=== PATIENT | male | born 1995 | race Caucasian/White ===

== ENCOUNTER 2024-09-16 08:59 | Inpatient (IN) | payer BC, MEDICAID ==
--- NOTE | 2024-09-16 09:15 | ED ---
Psych HPI - General Chief Complaint: Psychiatric Symptoms Stated Complaint: ETOH, mental health Time Seen by Provider: 09/16/24 09:04 Source: patient, RN notes reviewed Mode of arrival: ambulatory Limitations: no limitations - History of Present Illness Initial Comments: 29-year-old male presents emergency department chief complaint of depression and suicide lesion, alcohol abuse. Patient states that he drinks several beers a day. Patient states that he gets very shaky in the morning states he also has nausea. Patient states he wants to stop drinking but also states he has 0 depressed and having thoughts of suicide. Patient denies any self-harm he tries [place] symptoms with marijuana use, alcohol abuse. Patient states that he takes naproxen daily but denies any other medications - Related Data Home Medications Medication Instructions Recorded Confirmed Naproxen Sodium [Aleve] 660 mg PO BID PRN 09/16/24 09/16/24 Allergies Allergy/AdvReac Type Severity Reaction Status Date / Time amoxicillin Allergy Rash/Hives Verified 09/16/24 09:05 Penicillins Allergy Anaphylaxis, Verified 09/16/24 09:28 swelling spinach Allergy Rash/Hives Verified 09/16/24 09:28 Review of Systems ROS Statement: Those systems with pertinent positive or pertinent negative responses have been documented in the HPI. ROS Other: All systems not noted in ROS Statement are negative. Past Medical History Past Medical History: Asthma History of Any Multi-Drug Resistant Organisms: None Reported Past Surgical History: No Surgical Hx Reported Past Psychological History: No Psychological Hx Reported Smoking Status: Current every day smoker Past Alcohol Use History: Abuse, Daily Past Drug Use History: Marijuana General Exam Limitations: no limitations General appearance: alert, in no apparent distress Head exam: Present: atraumatic, normocephalic, normal inspection Eye exam: Present: normal appearance, PERRL, EOMI. Absent: scleral icterus, conjunctival injection, periorbital swelling ENT exam: Present: normal exam, mucous membranes moist Neck exam: Present: normal inspection, full ROM. Absent: tenderness, meningismus, lymphadenopathy Respiratory exam: Present: normal lung sounds bilaterally. Absent: respiratory distress, wheezes, rales, rhonchi, stridor Cardiovascular Exam: Present: regular rate, normal rhythm, normal heart sounds. Absent: systolic murmur, diastolic murmur, rubs, gallop, clicks GI/Abdominal exam: Present: soft, normal bowel sounds. Absent: distended, tenderness, guarding, rebound, rigid Neurological exam: Present: alert, oriented X3 Psychiatric exam: Present: anxious Course Vital Signs 09/16/24 09/16/24 09/16/24 09:00 09:04 10:04 Temperature 98.7 F Pulse Rate 65 88 86 Respiratory 20 20 20 Rate Blood Pressure 159/88 150/80 130/86 O2 Sat by Pulse 99 98 98 Oximetry Medical Decision Making - Medical Decision Making Was pt. sent in by a medical professional or institution (, PA, OFFBEARER SEWER PIPE, urgent care, hospital, or halfway...) When possible be specific @ -No Did you speak to anyone other than the patient for history (EMS, parent, family, police, friend...)? What history was obtained from this source @ -No Did you review nursing and triage notes (agree or disagree)? Why? @ -I reviewed and agree with nursing and triage notes Were old charts reviewed (outside hosp., previous admission, EMS record, old EKG, old radiological studies, urgent care reports/EKG's, halfway records)? Report findings @ -No old charts were reviewed Differential Diagnosis (chest pain, altered mental status, abdominal pain women, abdominal pain men, vaginal bleeding, weakness, fever, dyspnea, syncope, headache, dizziness, GI bleed, back pain, seizure, CVA, palpatations, mental health, musculoskeletal)? @ -Differential Mental Health Depression, anxiety, bipolar, psychosis, schizophrenia, borderline personality, situational depression, adjustment disorder, behavioral disorder, brain tumor, malingering, substance abuse, encephalopathy, medication reaction, dementia, hypothyroidism, degenerative neurologic disorder, lupus.... This is not meant to be all-inclusive list EKG interpreted by me (3pts min.). @ -[None X-rays interpreted by me (1pt min.). @ -None done CT interpreted by me (1pt min.). @ -None done U/S interpreted by me (1pt. min.). @ -None done What testing was considered but not performed or refused? (CT, X-rays, U/S, labs)? Why? @ -None What meds were considered but not given or refused? Why? @ -None Did you discuss the management of the patient with other professionals (professionals i.e. , PA, OFFBEARER SEWER PIPE, lab, RT, psych nurse, outreach and education social worker, rotor winder, teacher, complaint investigations officer, wrapper caser)? Give summary @EPS evaluated patient and discussed case with psychiatrist recommending inpatient treatment Was smoking cessation discussed for >3mins.? @ -No Was critical care preformed (if so, how long)? @ -No Were there social determinants of health that impacted care today? How? (Homelessness, low income, unemployed, alcoholism, drug addiction, transportation, low edu. Level, literacy, decrease access to med. care, [place] [facility], rehab)? @ -No Was there de-escalation of care discussed even if they declined (Discuss DNR or withdrawal of care, Hospice)? DNR status @ -No What co-morbidities impacted this encounter? (DM, HTN, Smoking, COPD, CAD, Cancer, CVA, ARF, Chemo, Hep., AIDS, mental health diagnosis, sleep apnea, morbid obesity)? @ -Alcohol abuse Was patient admitted / discharged? Hospital course, mention meds given and route, prescriptions, significant lab abnormalities, going to OR and other pertinent info. @ -Admit to 3 W. Undiagnosed new problem with uncertain prognosis? @ -No Drug Therapy requiring intensive monitoring for toxicity (Heparin, Nitro, Insulin, Cardizem)? @ -No Were any procedures done? @ -No Diagnosis/symptom? @ -Depression, suicide ideation, alcohol abuse Acute, or Chronic, or Acute on Chronic? @ -Acute Uncomplicated (without systemic symptoms) or Complicated (systemic symptoms)? @ -complicated Side effects of treatment? @ -No Exacerbation, Progression, or Severe Exacerbation? @ -No Poses a threat to life or bodily function? How? (Chest pain, [place], [place], pneumonia, PE, COPD, DKA, ARF, appy, cholecystitis, CVA, Diverticulitis, Homicidal, Suicidal, threat to staff... and all critical care pts) @ -Yes suicidal - Lab Data Result diagrams: 09/16/24 09:12 09/16/24 09:12 Lab Results 09/16/24 09/16/24 09/16/24 Range/Units 09:12 09:12 09:12 WBC 7.17 (4.50-10.00) 10*3/uL RBC 4.76 (4.40-5.60) 10*6/uL Hgb 14.4 (13.0-17.0) g/dL Hct 40.8 (39.6-50.0) % MCV 85.7 (80.0-97.0) fL MCH 30.3 (27.0-32.0) pg MCHC 35.3 (32.0-37.0) g/dL Plt Count 312 (140-440) 10*3/uL MPV 8.7 L (9.5-12.2) fL Immature Gran % (Auto) 0.4 % Neutrophils % 65.5 % Lymphocytes % 20.4 % Monocytes % 10.6 % Eosinophils % 1.7 % Basophils % 1.4 % Immature Gran # 0.03 (0.00-0.04) 10*3/uL Neutrophils # 4.70 (1.80-7.70) 10*3/uL Lymphocytes # 1.46 (0.90-5.00) 10*3/uL Monocytes # 0.76 (0.20-1.00) 10*3/uL Eosinophils # 0.12 (0.04-0.35) 10*3/uL Basophils # 0.10 (0.00-0.10) 10*3/uL Sodium 138 (137-145) mmol/L Potassium 4.5 (3.5-5.1) mmol/L Chloride 96 L (98-107) mmol/L Carbon Dioxide 30 (22-30) mmol/L Anion Gap 12 mmol/L BUN 20 (9-20) mg/dL Creatinine 0.64 L (0.66-1.25) mg/dL Est GFR (CKD-EPI)AfAm >90 (>60 ml/min/1.73 sqM) Est GFR (CKD-EPI)NonAf >90 (>60 ml/min/1.73 sqM) Glucose 108 H (74-99) mg/dL Calcium 10.1 (8.4-10.2) mg/dL Magnesium 1.6 (1.6-2.3) mg/dL Total Bilirubin 0.7 (0.2-1.3) mg/dL AST 29 (17-59) U/L ALT 17 (4-49) U/L Alkaline Phosphatase 75 (38-126) U/L Total Protein 8.9 H (6.3-8.2) g/dL Albumin 5.1 H (3.5-5.0) g/dL Lipase 54 (23-300) U/L Urine Opiates Screen Not Detected (NotDetected) Ur Oxycodone Screen Not Detected (NotDetected) Urine Methadone Screen Not Detected (NotDetected) Ur Barbiturates Screen Not Detected (NotDetected) U Tricyclic Antidepress Not Detected (NotDetected) Ur Phencyclidine Scrn Not Detected (NotDetected) Ur Amphetamines Screen Not Detected (NotDetected) U Methamphetamines Scrn Not Detected (NotDetected) U Benzodiazepines Scrn Not Detected (NotDetected) Urine Cocaine Screen Not Detected (NotDetected) U Marijuana (THC) Screen Detected H (NotDetected) Disposition Clinical Impression: Depression, Suicidal ideation, Alcohol abuse Disposition: TRANSFER TO PSYCH HOSP/UNIT Referrals: None,Stated [Primary Care Provider] - 1-2 days Time of Disposition: 11:28
[2024-09-16 09:33] LABS: Basophils % (A) 1.4 %; Eosinophils # (A) 0.12 10*3/uL (0.04-0.35); Eosinophils % (A) 1.7 %; HCT 40.8 % (39.6-50.0); HGB 14.4 g/dL (13.0-17.0); Lymphocytes # (A) 1.46 10*3/uL (0.90-5.00); Lymphocytes % (A) 20.4 %; MCH 30.3 pg (27.0-32.0); MCHC 35.3 g/dL (32.0-37.0); MCV 85.7 fL (80.0-97.0); Mean Platelet Volume 8.7 fL (9.5-12.2); Monocytes # (A) 0.76 10*3/uL (0.20-1.00); Monocytes % (A) 10.6 %; Neutrophils % (A) 65.5 %; Platelet Count 312 10*3/uL (140-440); RBC 4.76 10*6/uL (4.40-5.60); RDW 13.5 % (11.5-14.5); WBC 7.17 10*3/uL (4.50-10.00)
[2024-09-16] MEDS: ONDANSETRON 4 MG/2 ML VIAL IVP STA (09:35)
[2024-09-16] MEDS: LORazepam 2 MG/ML INJ IV STA (09:35)
[2024-09-16] MEDS: SODIUM CHLORIDE 0.9% 1,000 ML IV ONE (09:35)
[2024-09-16 09:46] LABS: ALT 17 U/L (4-49); AST 29 U/L (17-59); African American GFR (CKD) >90 (>60 ml/min/1.73 sqM); Albumin 5.1 g/dL (3.5-5.0); Alkaline Phosphatase 75 U/L (38-126); Anion Gap 12 mmol/L; Blood Urea Nitrogen 20 mg/dL (9-20); Calcium 10.1 mg/dL (8.4-10.2); Carbon Dioxide 30 mmol/L (22-30); Chloride 96 mmol/L (98-107); Glucose 108 mg/dL (74-99); Lipase 54 U/L (23-300); Magnesium 1.6 mg/dL (1.6-2.3); Non-African American GFR(CKD) >90 (>60 ml/min/1.73 sqM); Potassium 4.5 mmol/L (3.5-5.1); Sodium 138 mmol/L (137-145); Total Bilirubin 0.7 mg/dL (0.2-1.3); Total Protein 8.9 g/dL (6.3-8.2)
[2024-09-16 09:55] LABS: Amphetamine Screen,Urine Not Detected (NotDetected); Barbiturate Screen,Urine Not Detected (NotDetected); Benzodiazepines Screen,Urine Not Detected (NotDetected); Cocaine Screen,Urine Not Detected (NotDetected); Methadone Screen, Urine Not Detected (NotDetected); Opiate Screen,Urine Not Detected (NotDetected); Oxycodone Screen, Urine Not Detected (NotDetected); Phencyclidine Screen,Urine Not Detected (NotDetected); Tricyclic Antidepressant,Urine Not Detected (NotDetected); Urn Cannabinoid Scrn Detected (NotDetected)
[2024-09-16 12:14] LABS: Influenza A Not Detected (Not Detectd); Influenza B Not Detected (Not Detectd); RSV Not Detected (Not Detectd)
[2024-09-16] MEDS ORDERED: ACETAMINOPHEN TAB 325 MG TAB PO PRN (16:55)
[2024-09-16] MEDS ORDERED: IBUPROFEN 600 MG TAB PO PRN (16:55)
[2024-09-16] MEDS ORDERED: HALOPERIDOL LACTATE 5 MG/ML 1 ML VIAL IM PRN (16:55)
[2024-09-16] MEDS ORDERED: MAGNESIUM HYDROXIDE 2,400 MG/30 ML CUP PO PRN (16:55)
[2024-09-16] MEDS ORDERED: LORazepam 2 MG/ML INJ IM PRN (16:55)
[2024-09-16] MEDS ORDERED: haloperidoL 5 MG TAB PO PRN (16:55)
[2024-09-16] MEDS ORDERED: LORazepam 1 MG TAB PO PRN (16:55)
[2024-09-16] MEDS ORDERED: MAG HYDROX/AL HYDROX/SIMETH 355 ML BOTTLE PO PRN (16:55)
[2024-09-16] MEDS: LORazepam 1 MG TAB PO PRN (22:06)
[2024-09-16] MEDS: NICOTINE 21MG/24HR PATCH TRANSDERM SCH (22:14)
[2024-09-17] MEDS: LORazepam 1 MG TAB PO PRN (05:55)
[2024-09-17] MEDS ORDERED: ALBUTEROL INHALER 60 PUFF/8 GM INHALER (MHU) INHALATION PRN (06:50)
--- NOTE | 2024-09-17 06:50 | P.MDCNMH ---
History of Present Illness H&P Date: 09/17/24 Chief Complaint: Alcohol withdrawal Patient is a 29-year-old male with history of alcohol abuse and history of withdrawal in the past. Patient states he last drank 2 days prior. The patient presented to the emergency room requesting detoxification. The patient was also complaining of suicidal ideations. The patient was hospitalized in inpatient psych. At the time my evaluation patient states he was feeling anxious and jittery. Patient denies any chest pain any shortness of breath he states he had some nausea but this is since resolved. Review of Systems Gastrointestinal: Reports nausea Psychiatric: Reports anxiety, Reports depression Past Medical History Past Medical History: Asthma History of Any Multi-Drug Resistant Organisms: None Reported Past Surgical History: No Surgical Hx Reported Past Anesthesia/Blood Transfusion Reactions: No Reported Reaction Smoking Status: Current every day smoker, [place] Medications and Allergies Home Medications Medication Instructions Recorded Confirmed Type Naproxen Sodium [Aleve] 660 mg PO BID PRN 09/16/24 09/16/24 History Allergies Allergy/AdvReac Type Severity Reaction Status Date / Time amoxicillin Allergy Rash/Hives Verified 09/16/24 18:17 Penicillins Allergy Anaphylaxis, Verified 09/16/24 18:17 swelling spinach Allergy Rash/Hives Verified 09/16/24 18:17 Physical Exam Vitals: Vital Signs Temp Pulse Pulse Resp BP BP Pulse Ox 09/16/24 22:20 97.3 F L 72 20 157/93 99 09/16/24 16:26 98.1 F 75 18 149/85 99 09/16/24 15:20 68 16 125/68 98 09/16/24 11:33 68 20 130/68 98 09/16/24 10:04 86 20 130/86 98 09/16/24 09:04 88 20 150/80 98 09/16/24 09:00 98.7 F 65 20 159/88 99 Intake and Output 09/16/24 09/16/24 09/17/24 14:59 22:59 06:59 Other: Weight 61.235 kg 75.3 kg - Constitutional General appearance: thin - Respiratory Respiratory: bilateral: CTA - Cardiovascular Rhythm: regular - Gastrointestinal General gastrointestinal: normal bowel sounds - Integumentary Integumentary: normal - Neurologic Neurologic: CNII-XII intact - Musculoskeletal Musculoskeletal: strength equal bilaterally - Psychiatric Psychiatric: A&O x's 3 (tremors present), intact judgment & insight Cranial Nerve Examination - Cranial Nerves Cranial Nerve II- Optic: Intact Cranial Nerve III- Oculomotor: Intact Cranial Nerve IV- Trochlear: Intact Cranial Nerve V- Trigeminal: Intact Cranial Nerve - Abducens: Intact Cranial Nerve VII- Facial: Intact Cranial Nerve VIII- Auditory: Intact Cranial Nerve IX- Glossopharyngeal: Intact Cranial Nerve X- Vagus: Intact Cranial Nerve XI- Accessory: Intact Cranial Nerve XII- Hypoglossal: Intact Results CBC & Chem 7: 09/16/24 09:12 09/16/24 09:12 Labs: Abnormal Lab Results - Last 24 Hours (Table) 09/16/24 09/16/24 09/16/24 Range/Units 09:12 09:12 09:12 MPV 8.7 L (9.5-12.2) fL Chloride 96 L (98-107) mmol/L Creatinine 0.64 L (0.66-1.25) mg/dL Glucose 108 H (74-99) mg/dL Total Protein 8.9 H (6.3-8.2) g/dL Albumin 5.1 H (3.5-5.0) g/dL U Marijuana (THC) Screen Detected H (NotDetected) Assessment and Plan (1) Alcohol abuse Narrative/Plan: Patient on CIWA protocol discussed with RN continue treatment per protocol Current Visit: Yes Status: Acute Code(s): F10.10 - ALCOHOL ABUSE, UNCOMPLICATED SNOMED Code(s): 11475238 (2) Depression Narrative/Plan: Continue treatment per primary team Current Visit: Yes Status: Acute Code(s): F32.A - DEPRESSION, UNSPECIFIED SNOMED Code(s): 63844022 (3) Asthma Current Visit: Yes Status: Acute Code(s): J45.909 - UNSPECIFIED ASTHMA, UNCOMPLICATED SNOMED Code(s): 696213631 Plan: No exacerbation nebs as needed
[2024-09-17] MEDS: INFLUENZA VACC (6 MOS-64 YRS) 45 MCG/0.5 ML SYRINGE IM ONE ×2 (07:54→16:05)
[2024-09-17] MEDS: MULTIVITAMINS, THERA 1 EACH TAB PO SCH (08:36)
[2024-09-17] MEDS: THIAMINE 100 MG TAB PO SCH (08:36)
[2024-09-17] MEDS: FOLIC ACID 1 MG TAB PO SCH (08:36)
[2024-09-17] MEDS ORDERED: NICOTINE 14MG/24HR PATCH TRANSDERM SCH (09:00)
[2024-09-17 09:10] LABS: ALT 18 U/L (4-49); AST 32 U/L (17-59); Albumin 5.1 g/dL (3.5-5.0); Alkaline Phosphatase 75 U/L (38-126); Bilirubin, Delta 0.4 mg/dL (0.0-0.2); Bilirubin,Unconjugated 0.8 mg/dL (0.0-1.1); Total Bilirubin 1.2 mg/dL (0.2-1.3); Total Protein 8.8 g/dL (6.3-8.2)
[2024-09-17] MEDS: chlordiazePOXIDE 25 MG CAP PO STA (10:40)
[2024-09-17] MEDS: LITHIUM CARBONATE 150 MG CAP PO SCH (14:10)
[2024-09-17] MEDS: LORazepam 1 MG TAB PO ONE (14:10)
[2024-09-17] MEDS: NALTREXONE HCL 50 MG TAB PO SCH (14:10)
--- NOTE | 2024-09-17 14:17 | P.HP ---
Psychiatric H&P - . H&P Date: 09/17/24 History & Physical: Allergies Allergy/AdvReac Type Severity Reaction Status Date / Time amoxicillin Allergy Rash/Hives Verified 09/16/24 18:17 Penicillins Allergy Anaphylaxis, Verified 09/16/24 18:17 swelling spinach Allergy Rash/Hives Verified 09/16/24 18:17 Vital Signs Temp 97.8 F 09/17/24 11:58 Pulse 86 09/17/24 11:58 Resp 18 09/17/24 11:58 BP 158/96 09/17/24 11:58 Pulse Ox 96 09/17/24 11:58 FiO2 Intake & Output 09/16/24 09/17/24 09/17/24 18:59 06:59 18:59 Weight 75.3 kg Laboratory Last Values WBC 7.17 10*3/uL (4.50-10.00) 09/16/24 09:12 RBC 4.76 10*6/uL (4.40-5.60) 09/16/24 09:12 Hgb 14.4 g/dL (13.0-17.0) 09/16/24 09:12 Hct 40.8 % (39.6-50.0) 09/16/24 09:12 MCV 85.7 fL (80.0-97.0) 09/16/24 09:12 MCH 30.3 pg (27.0-32.0) 09/16/24 09:12 MCHC 35.3 g/dL (32.0-37.0) 09/16/24 09:12 Plt Count 312 10*3/uL (140-440) 09/16/24 09:12 MPV 8.7 fL (9.5-12.2) L 09/16/24 09:12 Immature Gran % (Auto) 0.4 % 09/16/24 09:12 Neutrophils % 65.5 % 09/16/24 09:12 Lymphocytes % 20.4 % 09/16/24 09:12 Monocytes % 10.6 % 09/16/24 09:12 Eosinophils % 1.7 % 09/16/24 09:12 Basophils % 1.4 % 09/16/24 09:12 Immature Gran # 0.03 10*3/uL (0.00-0.04) 09/16/24 09:12 Neutrophils # 4.70 10*3/uL (1.80-7.70) 09/16/24 09:12 Lymphocytes # 1.46 10*3/uL (0.90-5.00) 09/16/24 09:12 Monocytes # 0.76 10*3/uL (0.20-1.00) 09/16/24 09:12 Eosinophils # 0.12 10*3/uL (0.04-0.35) 09/16/24 09:12 Basophils # 0.10 10*3/uL (0.00-0.10) 09/16/24 09:12 Sodium 138 mmol/L (137-145) 09/16/24 09:12 Potassium 4.5 mmol/L (3.5-5.1) 09/16/24 09:12 Chloride 96 mmol/L (98-107) L 09/16/24 09:12 Carbon Dioxide 30 mmol/L (22-30) 09/16/24 09:12 Anion Gap 12 mmol/L 09/16/24 09:12 BUN 20 mg/dL (9-20) 09/16/24 09:12 Creatinine 0.64 mg/dL (0.66-1.25) L 09/16/24 09:12 Est GFR (CKD-EPI)AfAm >90 (>60 ml/min/1.73 sqM) 09/16/24 09:12 Est GFR (CKD-EPI)NonAf >90 (>60 ml/min/1.73 sqM) 09/16/24 09:12 Glucose 108 mg/dL (74-99) H 09/16/24 09:12 Calcium 10.1 mg/dL (8.4-10.2) 09/16/24 09:12 Magnesium 1.6 mg/dL (1.6-2.3) 09/16/24 09:12 Total Bilirubin 1.2 mg/dL (0.2-1.3) 09/17/24 08:20 Conjugated Bilirubin 0.0 mg/dL (0.0-0.3) 09/17/24 08:20 Unconjugated Bilirubin 0.8 mg/dL (0.0-1.1) 09/17/24 08:20 Delta Bilirubin 0.4 mg/dL (0.0-0.2) H 09/17/24 08:20 AST 32 U/L (17-59) 09/17/24 08:20 ALT 18 U/L (4-49) 09/17/24 08:20 Alkaline Phosphatase 75 U/L (38-126) 09/17/24 08:20 Total Protein 8.8 g/dL (6.3-8.2) H 09/17/24 08:20 Albumin 5.1 g/dL (3.5-5.0) H 09/17/24 08:20 Lipase 54 U/L (23-300) 09/16/24 09:12 TSH 3.500 mIU/L (0.465-4.680) 09/17/24 08:20 Urine Opiates Screen Not Detected (NotDetected) 09/16/24 09:12 Ur Oxycodone Screen Not Detected (NotDetected) 09/16/24 09:12 Urine Methadone Screen Not Detected (NotDetected) 09/16/24 09:12 Ur Barbiturates Screen Not Detected (NotDetected) 09/16/24 09:12 U Tricyclic Antidepress Not Detected (NotDetected) 09/16/24 09:12 Ur Phencyclidine Scrn Not Detected (NotDetected) 09/16/24 09:12 Ur Amphetamines Screen Not Detected (NotDetected) 09/16/24 09:12 U Methamphetamines Scrn Not Detected (NotDetected) 09/16/24 09:12 U Benzodiazepines Scrn Not Detected (NotDetected) 09/16/24 09:12 Urine Cocaine Screen Not Detected (NotDetected) 09/16/24 09:12 U Marijuana (THC) Screen Detected (NotDetected) H 09/16/24 09:12 Influenza Type A (PCR) Not Detected (Not Detectd) 09/16/24 11:30 Influenza Type B (PCR) Not Detected (Not Detectd) 09/16/24 11:30 RSV (PCR) Not Detected (Not Detectd) 09/16/24 11:30 SARS-CoV-2 (PCR) Not Detected (Not Detectd) 09/16/24 11:30 09/17/24 13:42 IDENTIFYING DATA: Patient is a 29-year-old male, currently single he has no kids he lives with a roommate in a trailer, 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 Cl sitting in bed A/O x4 brought self in due to withdrawl concers related to alcohol use and SI w plans. Cl reports hx of alcohol used that increased in February of 2024. Cl also reports using 3-4 bowls of marijuanna a day. Cl reports that they have been experiencing withdrawl symptoms at night while working. Cl reports using substances to self medicate their depression. Cl reports long hx of depression/anxiety and currently rates both at 9/10, Cl reports that with the increased symptoms and alcohol use they have also had increase in suicidal ideation. Cl tearfully expressed having 5 different suicide notes in their cell phone currently, with multiple plans (asphixiation, hanging, vehicle accident). Cl states " I have had urges a number of times but then backed out. I just know its all out of control and I need help." Cl also reports history of aud leon (believing my mom was calling my name, but she was indoors) and vis leon, (shadows) peripherally occasionally at work. 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 Cl reports they work nights from 22:45 to 07:00 am. and live with a roommate who is very supportive. Cl reports hx of tele health therapy privately and previous medication trials of Welbutrin and Zoloft. Cl reports they had a bad experience while on Zoloft. Judgement/inisght/impulse control: fair. ADL'S : Good Sleep/Appetite:decreased." Patient was seen today laying in bed agreeable to speak to medical underwriter. Patient appears to be shaking at times, tearful, fairly anxious however was attempting to cooperate. He claims that for the past couple of months he has wanted to detox off of alcohol and also marijuana. Claims that he has struggled with alcohol for several years of his life, claims that he has been drinking about a 6 to 12 pack of beer per day. Claims that he does have a significant history of withdrawals including tremors or shaking also delirium tremens, denies any withdrawal seizures. Claims that his last drink was about 24 hours ago. States that the alcohol was caused him to be in poor relationships, have family issues. States that he also has a history of childhood trauma which he did not specify more about. Claims that he has been feeling more depressed and anxious lately. Claims that he was feeling overwhelmed and having suicidal thoughts that have been increasing. Claims that he does have a history of chronic suicidal ideations, he has no specific plan at this time. Denies any homicidal ideations. He was fairly hesitant and emotional during interview and also tearful. Claims that he has been mainly isolating keeping himself. He is claiming that his sleep and appetite have been poor. At this time patient denies any auditory or visual hallucinations. Patient denies any flight of ideas racing thoughts and increased in goal directed behavior. Patient admits to using alcohol as noted above, claims that he smokes marijuana daily, states that he also vapes nicotine products. PAST PSYCHIATRIC HISTORY: Patient has a history of alcohol abuse, anxiety and also states he has significant childhood trauma. Patient denies being on any psychiatric medications. He claims that he has tried Zoloft and Wellbutrin in the past which have caused him to feel more suicidal. Patient denies any previous psychiatric hospitalizations. Patient denies any psychiatric outpatient follow-up. Claims that he has either tried to overdose or hang himself about 6 times in the past since childhood. PMH: as per ER note ALLERGIES: as per EMR CHEMICAL DEPENDENCY HISTORY: as per HPI FAMILY PSYCHIATRIC/SUBSTANCE USE HISTORY: He claims that his grandmother was an alcohol SOCIAL HISTORY: Patient was born and raised in [facility]. 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 Claims that he lives with a roommate in a trailer. He is single he has no kids. Denies any legal history. MENTAL STATUS EXAM: General Appearance: Patient appears to be has glasses, a facial piercing, covered in a blanket, is shaking visibly, he has longer hair tied back, stated age is alert, he attempts to cooperate. Patient appears to have fair hygiene and grooming. Behavior: Patient is seated without any agitated behavior. He appears to be anxious and upset. Tearful Speech: Patient's speech is fluent and nonpressured. Hesitant tone Mood/Affect: Patient reports their mood is depressed and anxious, affect is congruent and tearful Suicidality/Homicidality: Patient denies having any homicidal ideation intent or plan. Admits to suicidal thoughts no specific plan or intent Perceptions: Patient denies any visual hallucinations and denies any auditory hallucinations Though content/process: There is no evidence of any delusional thought content and thought process is linear and goal-directed. [place] Memory and concentration: AOX3, grossly intact for the purposes of this session. Can spell "WORLD" backwards Judgment and insight: Poor STRENGTHS/WEAKNESSES: strength is that patient is resilient. Weakness is that patient has poor judgment and is impulsive and claims that he has a significant history of childhood trauma INTELLECT: Average IMPRESSIONS: Depressive disorder unspecified, rule out bipolar depression versus major depressive disorder Suicidal ideations Anxiety disorder unspecified, rule out PTSD Alcohol use disorder severe dependence, currently in withdrawal Cannabis use disorder Nicotine dependence PLAN: -Patient is admitted under voluntary status to [facility] for stabilization of psychiatric symptoms and safety. Patient has signed adult voluntary form and has signed medication consent and is placed in patient's chart. -Medications : Will hold off on SSRI/SNRI at this time given patient's history of increasing suicidal thoughts. Patient agreeable to try trazodone 50 mg nightly for insomnia/mood, lithium 150 mg twice daily for mood stabilization/suicidal thoughts, naltrexone 50 mg p.o. daily for cravings of alcohol. -Ativan and Haldol PRN for agitation/aggression -Started thiamine, MVM for etoh use -CIWA protocol with Ativan PRN for ETOH withdrawal. Scheduled Librium 50 mg 3 times daily for alcohol withdrawal with plan to taper. -Patient was counselled on substance abuse and desired to cut back on use. Patient is willing to go to rehab once he is psychiatrically cleared. -Patient was informed of the risks, benefits and side effects of the medications and patient verbally consented to taking the medications. Patient signed med consent form and was placed in chart. Patient was offered medication information and accepted it -Internal Medicine consult to perform medical evaluation and physical. -NRT -nicotine patch -SW on board for discharge planning. Encourage patient to participate in groups to work on coping skills. 09/17/24 14:10
[2024-09-17 15:00] LABS: VLDL Calculation 13.42 mg/dL (5.00-40.00)
[2024-09-17 15:12] LABS: Chol/HDL Ratio 2.08 Ratio; LDL Cholesterol,Calculated 139.6 mg/dL (0.0-131.0)
[2024-09-17] MEDS ORDERED: chlordiazePOXIDE 25 MG CAP PO SCH ×2 (16:00)
[2024-09-17] MEDS: chlordiazePOXIDE 25 MG CAP PO SCH (16:02)
[2024-09-17] MEDS: PNEUMOCOCCAL VACC-PREVNAR-20 0.5 ML SYR IM ONE (16:05)
[2024-09-17] MEDS: traZODone HCL 50 MG TAB PO SCH (21:31)
--- NOTE | 2024-09-18 11:55 | P.PN ---
Progress Note - Text Progress Note Date: 09/18/24 Interval history: Patient was seen today agreeable to speak to keno writer/runner. He claims that he has been mainly keeping himself on the unit. States that he enjoys reading books instead of interacting with others. Claims that overall his mood has been improving since yesterday, does claim that his anxiety is still elevated, he was fairly hesitant and shaking his voice. Claims that his withdrawal symptoms have been improving a bit since yesterday. He is denying any tremors at this time. Claims that he slept on and off last night was agreeable to try higher dose of trazodone. We spoke again about possibly attempting an antidepressant medication and he states that he would be open to trying Cymbalta given the risks and benefits ratio. Claims that his appetite is mildly improving since yesterday. Denies any suicidal or homicidal ideations intent or plan denies any auditory or visual hallucinations not reporting any other side effects. MENTAL STATUS EXAM: General Appearance: Patient appears to be has glasses, a facial piercing, he has longer hair tied back, stated age is alert, he attempts to cooperate. Patient appears to have fair hygiene and grooming. Behavior: Patient is seated without any agitated behavior. He appears to be anxious today, improving mildly. Not tearful Speech: Patient's speech is fluent and nonpressured. Hesitant tone, improving mildly Mood/Affect: Patient reports their mood is less depressed, still significantly anxious, affect is congruent Suicidality/Homicidality: Patient denies having any homicidal ideation intent or plan. Admits to suicidal thoughts no specific plan or intent Perceptions: Patient denies any visual hallucinations and denies any auditory hallucinations Though content/process: There is no evidence of any delusional thought content and thought process is linear and goal-directed. [place] Memory and concentration: AOX3, grossly intact for the purposes of this session Judgment and insight: Poor, improving mildly IMPRESSIONS: Depressive disorder unspecified, rule out bipolar depression versus major depressive disorder Suicidal ideations Anxiety disorder unspecified, rule out PTSD Alcohol use disorder severe dependence, currently in withdrawal Cannabis use disorder Nicotine dependence PLAN: -Patient is admitted under voluntary status to MHU for stabilization of psychiatric symptoms and safety. Patient has signed adult voluntary form and has signed medication consent and is placed in patient's chart. -Medications : patient is agreeable to try cymbalta today at a low dose to see if he has any issues with it, will try Cymbalta 30 mg daily for mood/anxieyt. increase trazodone 100 mg nightly for insomnia/mood, increase lithium 300 mg twice daily for mood stabilization/suicidal thoughts, naltrexone 50 mg p.o. daily for cravings of alcohol. -Ativan and Haldol PRN for agitation/aggression -thiamine, MVM for etoh use -CIWA protocol with Ativan PRN for ETOH withdrawal. Decrease scheduled Librium 30 mg 4 times daily for alcohol withdrawal with plan to taper. -NRT -nicotine patch -SW on board for discharge planning. Encourage patient to participate in groups to work on coping skills. At this time patient is not interested in inpatient rehab however would be interested in outpatient services.
[2024-09-18] MEDS: DULoxetine HCL 30 MG CAPSULE.DR PO SCH (12:24)
[2024-09-18] MEDS: NICOTINE GUM (POLACRILEX) 2 MG GUM BUCCAL PRN (18:20)
[2024-09-18] MEDS: LITHIUM CARBONATE 300 MG CAP PO SCH (22:27)
[2024-09-18] MEDS: traZODone HCL 100 MG TAB PO SCH (22:27)
[2024-09-19 12:16] LABS: Appearance,Urine Clear (Clear); Bilirubin,Urine Negative (Negative); Blood,Urine Negative (Negative); Color,Urine Yellow; Glucose,Urine (UA) 2+ (Negative); Hyaline Casts,Urine 10 /lpf (0-2); Ketones,Urine Negative (Negative); Leukocyte Esterase,Urine Negative (Negative); Mucus,Urine Rare /hpf; Nitrite,Urine Negative (Negative); Protein,Urine Trace (Negative); RBC,Urine 1 /hpf (0-5); Specific Gravity,Urine 1.018 (1.001-1.035); Squamous Epithelial Cell,Urine <1 /hpf (0-4); Urobilinogen,Urine <2.0 mg/dL (<2.0); WBC,Urine 1 /hpf (0-5)
--- NOTE | 2024-09-19 12:46 | P.PN ---
Progress Note - Text Progress Note Date: 09/19/24 Interval history: Patient was seen today agreeable to speak to commercial lines underwriter. Patient has been noted to be more interactive on the unit, has been making paper cranes and attending more groups. Claims that he is doing better with regards to his mood and anxiety. His hygiene and grooming appear to be improving. He states that his withdrawal symptoms are also improving mildly since yesterday did claim that he did feel a bit nauseous this morning however after taking the Ativan he improved. He casper ears to be mild the improved in terms of his future orientation and about eventually going back to work. Continues to want to do outpatient substance use treatment instead of inpatient. He is denying any tremors at this time. Claims that he slept better last night. Claims that his appetite is mildly improving since yesterday. Denies any suicidal or homicidal ideations intent or plan denies any auditory or visual hallucinations not reporting any other side effects. MENTAL STATUS EXAM: General Appearance: Patient appears to be has glasses, a facial piercing, he has longer hair tied back, stated age is alert, he attempts to cooperate. Patient appears to have fair hygiene and grooming. Behavior: Patient is seated without any agitated behavior. He appears to be less anxious today, improving mildly. Not tearful Speech: Patient's speech is fluent and nonpressured. Hesitant tone, improving mildly Mood/Affect: Patient reports their mood is improving mildly, improving anxious, affect is congruent Suicidality/Homicidality: Patient denies having any homicidal ideation intent or plan. Admits to suicidal thoughts no specific plan or intent Perceptions: Patient denies any visual hallucinations and denies any auditory hallucinations Though content/process: There is no evidence of any delusional thought content and thought process is linear and goal-directed. [place], improving mildly Memory and concentration: AOX3, grossly intact for the purposes of this session Judgment and insight: improving mildly IMPRESSIONS: Depressive disorder unspecified, rule out bipolar depression versus major depressive disorder Suicidal ideations Anxiety disorder unspecified, rule out PTSD Alcohol use disorder severe dependence, currently in withdrawal Cannabis use disorder Nicotine dependence PLAN: -Patient is admitted under voluntary status to MHU for stabilization of psychiatric symptoms and safety. Patient has signed adult voluntary form and has signed medication consent and is placed in patient's chart. -Medications : increase Cymbalta 60 mg daily for mood/anxiety. trazodone 100 mg nightly for insomnia/mood, lithium 300 mg twice daily for mood stabilization/suicidal thoughts, naltrexone 50 mg p.o. daily for cravings of alcohol. -Ativan and Haldol PRN for agitation/aggression -thiamine, MVM for etoh use -CIWA protocol with Ativan PRN for ETOH withdrawal. Decrease scheduled Librium 25 mg 4 times daily for alcohol withdrawal with plan to taper. -NRT -nicotine patch -SW on board for discharge planning. Encourage patient to participate in groups to work on coping skills. At this time patient is not interested in inpatient rehab however would be interested in outpatient services. hopeful for discharge early next week if patient is improving psychiatrically and tapered off librium over the weekend
[2024-09-19] MEDS: chlordiazePOXIDE 25 MG CAP PO SCH (13:12)
[2024-09-20] MEDS: DULoxetine HCL 60 MG CAPSULE.DR PO SCH (08:14)
--- NOTE | 2024-09-20 12:29 | P.PN ---
Progress Note - Text Progress Note Date: 09/20/24 Interval history: Patient was seen today agreeable to speak to story writer. Patient claims that he is trying to go to groups appears to have an improvement in his affect today. Claims that his mood and anxiety are mildly improving since yesterday. Claims that he was able to sleep a bit better last night, has been showering and eating his meals. He is reporting very mild withdrawal symptoms, continuing to titrate down on the Librium at this time. Continues to want to do outpatient substance use treatment instead of inpatient. He is denying any tremors at this time. Denies any suicidal or homicidal ideations intent or plan denies any auditory or visual hallucinations not reporting any other side effects. MENTAL STATUS EXAM: General Appearance: Patient appears to be has glasses, a facial piercing, he has longer hair tied back, stated age is alert, he attempts to cooperate. Patient a ppears to have fair hygiene and grooming. Behavior: Patient is seated without any agitated behavior. He appears to be less anxious today, improving mildly Speech: Patient's speech is fluent and nonpressured, improving mildly Mood/Affect: Patient reports their mood is improving mildly, improving anxious, affect is congruent Suicidality/Homicidality: Patient denies having any homicidal ideation intent or plan. He is denying any suicidal thoughts no specific plan or intent Perceptions: Patient denies any visual hallucinations and denies any auditory hallucinations Though content/process: There is no evidence of any delusional thought content and thought process is linear and goal-directed. [place], improving mildly Memory and concentration: AOX3, grossly intact for the purposes of this session Judgment and insight: improving mildly IMPRESSIONS: Depressive disorder unspecified, rule out bipolar depression versus major depressive disorder Suicidal ideations Anxiety disorder unspecified, rule out PTSD Alcohol use disorder severe dependence, currently in withdrawal Cannabis use disorder Nicotine dependence PLAN: -Patient is admitted under voluntary status to MHU for stabilization of psychiatric symptoms and safety. Patient has signed adult voluntary form and has signed medication consent and is placed in patient's chart. -Medications : Cymbalta 60 mg daily for mood/anxiety. trazodone 100 mg nightly for insomnia/mood, lithium 300 mg twice daily for mood stabilization/suicidal thoughts, naltrexone 50 mg p.o. daily for cravings of alcohol. -Ativan and Haldol PRN for agitation/aggression -thiamine, MVM for etoh use -CIWA protocol with Ativan PRN for ETOH withdrawal. Decrease scheduled Librium 25 mg 3 times daily for alcohol withdrawal with plan to taper. set to taper down further throughout the weekend. -NRT -nicotine patch -SW on board for discharge planning. Encourage patient to participate in groups to work on coping skills. At this time patient is not interested in inpatient rehab however would be interested in outpatient services. hopeful for discharge early next week if patient is improving psychiatrically and tapered off librium over the weekend
[2024-09-20] MEDS: chlordiazePOXIDE 25 MG CAP PO SCH (15:46)
--- NOTE | 2024-09-21 16:41 | P.PN ---
Progress Note - Text Progress Note Date: 09/21/24 Dictation was produced using P2i dictation software. Please excuse any grammatical, word or spelling errors. Interval history: Patient was seen in the hallway and was directable and agreeable to speak with the song writer in the office for psychiatric follow-up. The patient states that he is feeling great today, states that he slept well last night, denied any nightmares. Admitted to good appetite. States that depression and anxiety are at the low side, he rated depression at 1/10, and anxiety at 2-3/10. He denied any current SI/HI or self harm, denied any current AVH. He is attending groups, and has been feeing safe, getting along well with everyone. He has been compliant with his medication, and denied any current side effects. He states that he has no withdrawal symptom. He states that he is willing to attend rehab. MENTAL STATUS EXAM: General Appearance: Patient appears to be has glasses, a facial piercing, he has longer hair tied back, stated age is alert, he attempts to cooperate. Patient appears to have fair hygiene and grooming. Behavior: Patient is seated without any agitated behavior. He appears to be less anxious today, pleasant, improving mildly Speech: Patient's speech is fluent and nonpressured, improving mildly Mood/Affect: Patient reports their mood is improving mildly, improving anxious, affect is congruent Suicidality/Homicidality: Patient denies having any homicidal ideation intent or plan. He is denying any suicidal thoughts no specific plan or intent Perceptions: Patient denies any visual hallucinations and denies any auditory hallucinations Though content/process: There is no evidence of any delusional thought content and thought process is linear and goal-directed. [place], improving mildly Memory and concentration: AOX3, grossly intact for the purposes of this session Judgment and insight: improving mildly IMPRESSIONS: Depressive disorder unspecified, rule out bipolar depression versus major depressive disorder Suicidal ideations Anxiety disorder unspecified, rule out PTSD Alcohol use disorder severe dependence, currently in withdrawal Cannabis use disorder Nicotine dependence Assessment/Plan: Continue with current diagnosis. Patient continues to meet criteria for inpatient psychiatric admission for symptom stabilization and safety. Patient will be maintained on current psychotropic medication regimen which includes Cymbalta 60 mg p.o. daily, trazodone 100 mg p.o. at bedtime, lithium 300 mg p.o. twice daily, and naltrexone 50 mg p.o. daily, he denied any current side effects, he denied any withdrawal symptoms, Librium was decreased on Monday and continues to be tapered as per primary team plan, no changes today. Monitor for medication compliance and for any psychotropic medication side effects. Will continue to monitor ongoing response to treatment. Encouraged participation in milieu.
--- NOTE | 2024-09-22 15:21 | P.PN ---
Progress Note - Text Progress Note Date: 09/22/24 Dictation was produced using [employer] ([email or web address] [email or web address]) dictation software. Please excuse any grammatical, word or spelling errors. Interval history: Patient was seen in the [facility] and was directable and agreeable to speak with the story writer in the office for psychiatric follow-up. The patient states that he is feeling great today, states that he has been working on coping skills, and is getting along well with everyone in the unit. Reported that depression and anxiety to be at the low side, he rated anxiety at 2/10, and anxiety at 0/10, denied any current SI/HI or self harm, denied any AVH. States that he has been compliant with his medications, denied any side effects. He denied any withdrawal symptoms. He admitted to good appetite and sleep. Pt was educated on AA meetings and rehab however he does not consider rehab and may consider attending AA meeting. Patient was seen [wandering the hallways] and was directable and agreeable to speak with story writer. []. At this time patient denies any suicidal or homicidal ideations intent or plan. Denies any Auditory or visual hallucinations. Patient denies any side effects from the medications and has been compliant with meds. MENTAL STATUS EXAM: General Appearance: Patient appears to be has glasses, a facial piercing, he has longer hair tied back, stated age is alert, he attempts to cooperate. Patient appears to have fair hygiene and grooming. Behavior: Patient is seated without any agitated behavior. He appears to be less anxious today, pleasant, improving mildly Speech: Patient's speech is fluent and nonpressured, improving mildly Mood/Affect: Patient reports their mood is improving mildly, improving anxious, affect is congruent Suicidality/Homicidality: Patient denies having any homicidal ideation intent or plan. He is denying any suicidal thoughts no specific plan or intent Perceptions: Patient denies any visual hallucinations and denies any auditory hallucinations Though content/process: There is no evidence of any delusional thought content and thought process is linear and goal-directed. [place], improving mildly Memory and concentration: AOX3, grossly intact for the purposes of this session Judgment and insight: improving mildly IMPRESSIONS: Depressive disorder unspecified, rule out bipolar depression versus major depressive disorder Suicidal ideations Anxiety disorder unspecified, rule out PTSD Alcohol use disorder severe dependence, currently in withdrawal Cannabis use disorder Nicotine dependence Assessment/Plan: Continue with current diagnosis. Patient continues to meet criteria for inpatient psychiatric admission for symptom stabilization and safety. Patient will be maintained on current psychotropic medication regimen which includes Cymbalta 60 mg p.o. daily, trazodone 100 mg p.o. at bedtime, lithium 300 mg p.o. twice daily, and naltrexone 50 mg p.o. daily, he denied any current side effects, he denied any withdrawal symptoms, Librium was decreased on Monday and continues to be tapered as per primary team plan, no changes today. Monitor for medication compliance and for any psychotropic medication side effects. Will continue to monitor ongoing response to treatment. Encouraged participation in milieu.
[2024-09-23] MEDS ORDERED: traZODone HCL 100 MG TAB PO PRN (09:44)
--- NOTE | 2024-09-23 09:49 | P.PN ---
Progress Note - Text Progress Note Date: 09/23/24 Interval history: Patient was seen today agreeable to speak to race and sports book writer. Patient was sitting in on a group today. Claims that he is feeling a bit better, claims that he has been sleeping better and did not need the trazodone last night. He would prefer to just have it as a as needed dosing. Claims that his anxiety is also improving. He states that his withdrawal symptoms from the alcohol is improving, we spoke about tapering off the Librium over the course of today and tomorrow morning. Continues to decline rehab would prefer to do outpatient meetings and treatment. States that he is eating well, hygiene and grooming improving. Denies any suicidal or homicidal ideations intent or plan denies any auditory or visual hallucinations not reporting any other side effects. MENTAL STATUS EXAM: General Appearance: Patient appears to be has glasses, a facial piercing, he has longer hair tied back, stated age is alert, he attempts to cooperate. Patient appears to have fair hygiene and grooming. Behavior: Patient is seated without any agitated behavior. He appears to be less anxious today, improving mildly. More cooperative Speech: Patient's speech is fluent and nonpressured, improving mildly Mood/Affect: Patient reports their mood is improving mildly, improving anxious, affect is congruent Suicidality/Homicidality: Patient denies having any homicidal ideation intent or plan. He is denying any suicidal thoughts no specific plan or intent Perceptions: Patient denies any visual hallucinations and denies any auditory hallucinations Though content/process: There is no evidence of any delusional thought content and thought process is linear and goal-directed. Memory and concentration: AOX3, grossly intact for the purposes of this session Judgment and insight: improving mildly IMPRESSIONS: Depressive disorder unspecified, rule out bipolar depression versus major depr essive disorder Suicidal ideations Anxiety disorder unspecified, rule out PTSD Alcohol use disorder severe dependence, currently in withdrawal Cannabis use disorder Nicotine dependence PLAN: -Patient is admitted under voluntary status to MHU for stabilization of psychiatric symptoms and safety. Patient has signed adult voluntary form and has signed medication consent and is placed in patient's chart. -Medications : Cymbalta 60 mg daily for mood/anxiety. Change trazodone 100 mg nightly as needed for insomnia/mood, lithium 300 mg twice daily for mood stabilization/suicidal thoughts, naltrexone 50 mg p.o. daily for cravings of alcohol.Decrease scheduled Librium 10 mg 4 times daily for alcohol withdrawal with plan to taper off completely tomorrow -Ativan and Haldol PRN for agitation/aggression -thiamine, MVM for etoh use -CIWA protocol with Ativan PRN for ETOH withdrawal. -NRT -nicotine patch -SW on board for discharge planning. Encourage patient to participate in groups to work on coping skills. At this time patient is not interested in inpatient rehab however would be interested in outpatient services. hopeful for discharge tomorrow if patient is improving psychiatrically and tapered off librium
[2024-09-23 21:38] VITALS: RESP 18
[2024-09-24 08:41] VITALS: BP 132/92; PULSE 107; TEMP 97.8
--- NOTE | 2024-09-24 09:57 | P.DS ---
Providers Date of admission: 09/16/24 16:20 Expected date of discharge: 09/24/24 Attending physician: Malcom Pierre MD Consults: 09/16/24 16:55 Consult Physician Routine Consulting Provider: Hodan Physician Consult Reason/Comments: History and Physical new admission Do you want consulting provider notified?: Yes Primary care physician: Stated None - Discharge Diagnosis(es) (1) Depressive disorder Current Visit: Yes Status: Acute Priority: High (2) Suicidal ideations Current Visit: Yes Status: Acute Priority: High (3) Anxiety disorder Current Visit: Yes Status: Acute Priority: Medium (4) Alcohol use disorder, severe, dependence Current Visit: Yes Status: Acute Priority: High (5) Cannabis use disorder Current Visit: Yes Status: Acute Priority: Medium (6) Nicotine dependence Current Visit: Yes Status: Acute Priority: Low Hospital Course: Admission HPI: Admission note was completed by senior underwriter "Patient is a 29-year-old male, currently single he has no kids he lives with a roommate in a trailer, 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 Patient presented to the hospital yesterday for evaluation and was seen by eps SW and as per note "Clinician met with Kamlesh and their roommate in ER 12 to eval. Cl sitting in bed A/O x4 brought self in due to withdrawl concers related to alcohol use and SI w plans. Cl reports hx of alcohol used that increased in February of 2024. Cl also reports using 3-4 bowls of marijuanna a day. Cl reports that they have been experiencing withdrawl symptoms at night while working. Cl reports using substances to self medicate their depression. Cl reports long hx of depression/anxiety and currently rates both at 9/10, Cl reports that with the increased symptoms and alcohol use they have also had increase in suicidal ideation. Cl tearfully expressed having 5 different suicide notes in their cell phone currently, with multiple plans (asphixiation, hanging, vehicle accident). Cl states " I have had urges a number of times but then backed out. I just know its all out of control and I need help." Cl also reports history of aud leon (believing my mom was calling my name, but she was indoors) and vis leon, (shadows) peripherally occasionally at work. 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 Cl reports they work nights from 22:45 to 07:00 am. and live with a roommate who is very supportive. Cl reports hx of tele health therapy privately and previous medication trials of Welbutrin and Zoloft. Cl reports they had a bad experience while on Zoloft. Judgement/inisght/impulse control: fair. ADL'S : Good Sleep/Appetite:decreased." Patient was seen today laying in bed agreeable to speak to senior underwriter. Patient appears to be shaking at times, tearful, fairly anxious however was attempting to cooperate. He claims that for the past couple of months he has wanted to detox off of alcohol and also marijuana. Claims that he has struggled with alcohol for several years of his life, claims that he has been drinking about a 6 to 12 pack of beer per day. Claims that he does have a significant history of withdrawals including tremors or shaking also delirium tremens, denies any withdrawal seizures. Claims that his last drink was about 24 hours ago. States that the alcohol was caused him to be in poor relationships, have family issues. States that he also has a history of childhood trauma which he did not specify more about. Claims that he has been feeling more depressed and anxious lately. Claims that he was feeling overwhelmed and having suicidal thoughts that have been increasing. Claims that he does have a history of chronic suicidal ideations, he has no specific plan at this time. Denies any homicidal ideations. He was fairly hesitant and emotional during interview and also tearful. Claims that he has been mainly isolating keeping himself. He is claiming that his sleep and appetite have been poor. At this time patient denies any auditory or visual hallucinations. Patient denies any flight of ideas racing thoughts and increased in goal directed behavior. Patient admits to using alcohol as noted above, claims that he smokes marijuana daily, states that he also vapes nicotine products." Hospital course: Upon admission to the unit patient was directable and agreeable to commence treatment and signed adult voluntary form. Patient was initially severely anxious withdrawing from alcohol and depressed, isolative however with time and treatment patient got along well with other patients on the unit and followed unit protocol. Patient was compliant with the medications and denied any side effects throughout hospital course. Patient was started on Cymbalta increased to dose of 60 mg daily for mood/anxiety, trazodone nightly as needed for insomnia, lithium 300 mg twice daily for mood stabilization/suicidal thoughts, naltrexone 50 mg p.o. daily for alcohol cravings, patient was on a high dose of Librium scheduled was gradually tapered off. CIWA protocol with as needed Ativan.. Patient spoke of his stressors and engaged in therapy both group/activity therapy. Patient was also seen by medical team for history and physical exam. Throughout the course of the hospitalization patient gradually improved with regards to mood, anxiety, withdrawals, suicidal thoughts, sleep and returned back to their baseline level of functioning. On the day of discharge patient denied any suicidal or homicidal ideations intent or plan denied any auditory or visual hallucinations. Patient endorsed wanting to live for their health and family. The patient denied any access to guns or weapons. Patient denied any paranoia and did not endorse any delusions. Patient does have a significant history of substance abuse and was counseled on abstaining from all substances including alcohol and marijuana. Patient was offered however declined inpatient substance-abuse rehab. Patient elected to do outpatient substance use treatment program through their outpatient provider. Patient was also counseled on the medications and need for regular compliance and was encouraged to follow-up with their outpatient appointment for mental health and also for primary care. Prior to discharge a family meeting will be arranged by mental health social worker to answer any questions and ensure safety upon discharge incuding making sure that guns/weapons are either removed from the home or locked away. Mental status exam: General Appearance: Patient appears to be wearing glasses, long hair tied back, stated age is alert, pleasant, and cooperative. Patient is in no acute distress and has improved hygiene and grooming Behavior: Patient is calmly seated without any agitated behavior. Speech: Patient's speech is fluent and nonpressured. Mood/Affect: Patient reports their mood is "good", affect is congruent and euthymic. Suicidality/Homicidality: Patient denies having any suicidal or homicidal ideation intent or plan. Perceptions: Patient denies any auditory or visual hallucinations. Though content/process: There is no evidence of any delusional thought content and thought process is linear and goal-directed. More future oriented Memory and concentration: AOX3, grossly intact for the purposes of this session. Can spell "WORLD" backwards correctly. Judgment and insight: improved with guarded prognosis Impression: Depressive disorder unspecified Suicidal ideations Anxiety disorder unspecified Alcohol use disorder severe dependence Cannabis use disorder Nicotine dependence Plan: -Continue with discharge today as patient has improved and stabilized psychiatrically and is not currently an imminent threat to themself and/or others. Patient will remain at chronically elevated risk for harm to self and/or others due to their impulsivity and substance abuse. -Continue medications: Cymbalta 60 mg daily for mood/anxiety, trazodone 100 mg nightly as needed for insomnia, lithium 300 mg twice daily for mood stabilization/suicidal thoughts, naltrexone 50 mg p.o. daily for alcohol cravings. -Patient was counseled on the need for medication compliance and appropriate follow-up at mental health and also primary care for medical issues. Patient verbalized understanding and agreed. -Social work to help coordinate patients discharge today. also to ensure safe ho me environment that guns/weapons are either removed from the home or locked away. Social work also to arrange for patients follow up appointments for psychiatric care along with follow up with primary care provider. -Patient counseled on abstaining from recreational drugs and marijuana and alcohol. Was informed/educated on the adverse effects on their physical and mental health. Patient verbally agreed and understood. Patient was offered substance abuse treatment however declined at this time. Patient states that he would prefer to do outpatient substance use treatment including AA meetings -Patient was instructed to return to the hospital or seek immediate medical care if their psychiatric or medical symptoms do worsen or reoccur. Allergies Allergy/AdvReac Type Severity Reaction Status Date / Time amoxicillin Allergy Rash/Hives Verified 09/16/24 18:17 Penicillins Allergy Anaphylaxis, Verified 09/16/24 18:17 swelling spinach Allergy Rash/Hives Verified 09/16/24 18:17 Laboratory Results WBC 7.17 10*3/uL (4.50-10.00) 09/16/24 09:12 RBC 4.76 10*6/uL (4.40-5.60) 09/16/24 09:12 Hgb 14.4 g/dL (13.0-17.0) 09/16/24 09:12 Hct 40.8 % (39.6-50.0) 09/16/24 09:12 MCV 85.7 fL (80.0-97.0) 09/16/24 09:12 MCH 30.3 pg (27.0-32.0) 09/16/24 09:12 MCHC 35.3 g/dL (32.0-37.0) 09/16/24 09:12 Plt Count 312 10*3/uL (140-440) 09/16/24 09:12 MPV 8.7 fL (9.5-12.2) L 09/16/24 09:12 Immature Gran % (Auto) 0.4 % 09/16/24 09:12 Neutrophils % 65.5 % 09/16/24 09:12 Lymphocytes % 20.4 % 09/16/24 09:12 Monocytes % 10.6 % 09/16/24 09:12 Eosinophils % 1.7 % 09/16/24 09:12 Basophils % 1.4 % 09/16/24 09:12 Immature Gran # 0.03 10*3/uL (0.00-0.04) 09/16/24 09:12 Neutrophils # 4.70 10*3/uL (1.80-7.70) 09/16/24 09:12 Lymphocytes # 1.46 10*3/uL (0.90-5.00) 09/16/24 09:12 Monocytes # 0.76 10*3/uL (0.20-1.00) 09/16/24 09:12 Eosinophils # 0.12 10*3/uL (0.04-0.35) 09/16/24 09:12 Basophils # 0.10 10*3/uL (0.00-0.10) 09/16/24 09:12 Sodium 138 mmol/L (137-145) 09/16/24 09:12 Potassium 4.5 mmol/L (3.5-5.1) 09/16/24 09:12 Chloride 96 mmol/L (98-107) L 09/16/24 09:12 Carbon Dioxide 30 mmol/L (22-30) 09/16/24 09:12 Anion Gap 12 mmol/L 09/16/24 09:12 BUN 20 mg/dL (9-20) 09/16/24 09:12 Creatinine 0.64 mg/dL (0.66-1.25) L 09/16/24 09:12 Est GFR (CKD-EPI)AfAm >90 (>60 ml/min/1.73 sqM) 09/16/24 09:12 Est GFR (CKD-EPI)NonAf >90 (>60 ml/min/1.73 sqM) 09/16/24 09:12 Glucose 108 mg/dL (74-99) H 09/16/24 09:[address] Glu mg/dL 108 mg/dL 09/17/24 08:20 Hemoglobin A1c 5.4 % (<=6.0) 09/17/24 08:20 Calcium 10.1 mg/dL (8.4-10.2) 09/16/24 09:12 Magnesium 1.6 mg/dL (1.6-2.3) 09/16/24 09:12 Total Bilirubin 1.2 mg/dL (0.2-1.3) 09/17/24 08:20 Conjugated Bilirubin 0.0 mg/dL (0.0-0.3) 09/17/24 08:20 Unconjugated Bilirubin 0.8 mg/dL (0.0-1.1) 09/17/24 08:20 Delta Bilirubin 0.4 mg/dL (0.0-0.2) H 09/17/24 08:20 AST 32 U/L (17-59) 09/17/24 08:20 ALT 18 U/L (4-49) 09/17/24 08:20 Alkaline Phosphatase 75 U/L (38-126) 09/17/24 08:20 Total Protein 8.8 g/dL (6.3-8.2) H 09/17/24 08:20 Albumin 5.1 g/dL (3.5-5.0) H 09/17/24 08:20 Triglycerides 67.10 mg/dL (0.00-149.00) 09/17/24 08:20 Cholesterol 295.00 mg/dL (0.00-200.00) H 09/17/24 08:20 LDL Cholesterol, Calc 139.6 mg/dL (0.0-131.0) H 09/17/24 08:20 VLDL Cholesterol, Calc 13.42 mg/dL (5.00-40.00) 09/17/24 08:20 HDL Cholesterol 142.00 mg/dL (40.00-60.00) H 09/17/24 08:20 Cholesterol/HDL Ratio 2.08 Ratio 09/17/24 08:20 Lipase 54 U/L (23-300) 09/16/24 09:12 TSH 3.500 mIU/L (0.465-4.680) 09/17/24 08:20 Urine Color Yellow 09/19/24 10:51 Urine Appearance Clear (Clear) 09/19/24 10:51 Urine pH 6.0 (5.0-8.0) 09/19/24 10:51 Ur Specific Universal 1.018 (1.001-1.035) 09/19/24 10:51 Urine Protein Trace (Negative) H 09/19/24 10:51 Urine Glucose (UA) 2+ (Negative) H 09/19/24 10:51 Urine Ketones Negative (Negative) 09/19/24 10:51 Urine Blood Negative (Negative) 09/19/24 10:51 Urine Nitrite Negative (Negative) 09/19/24 10:51 Urine Bilirubin Negative (Negative) 09/19/24 10:51 Urine Urobilinogen <2.0 mg/dL (<2.0) 09/19/24 10:51 Ur Leukocyte Esterase Negative (Negative) 09/19/24 10:51 Urine RBC 1 /hpf (0-5) 09/19/24 10:51 Urine WBC 1 /hpf (0-5) 09/19/24 10:51 Ur Squamous Epith Cells <1 /hpf (0-4) 09/19/24 10:51 Hyaline Casts 10 /lpf (0-2) H 09/19/24 10:51 Urine Mucus Rare /hpf (None) H 09/19/24 10:51 Urine Opiates Screen Not Detected (NotDetected) 09/16/24 09:12 Ur Oxycodone Screen Not Detected (NotDetected) 09/16/24 09:12 Urine Methadone Screen Not Detected (NotDetected) 09/16/24 09:12 Ur Barbiturates Screen Not Detected (NotDetected) 09/16/24 09:12 U Tricyclic Antidepress Not Detected (NotDetected) 09/16/24 09:12 Ur Phencyclidine Scrn Not Detected (NotDetected) 09/16/24 09:12 Ur Amphetamines Screen Not Detected (NotDetected) 09/16/24 09:12 U Methamphetamines Scrn Not Detected (NotDetected) 09/16/24 09:12 U Benzodiazepines Scrn Not Detected (NotDetected) 09/16/24 09:12 Urine Cocaine Screen Not Detected (NotDetected) 09/16/24 09:12 U Marijuana (THC) Screen Detected (NotDetected) H 09/16/24 09:12 Influenza Type A (PCR) Not Detected (Not Detectd) 09/16/24 11:30 Influenza Type B (PCR) Not Detected (Not Detectd) 09/16/24 11:30 RSV (PCR) Not Detected (Not Detectd) 09/16/24 11:30 SARS-CoV-2 (PCR) Not Detected (Not Detectd) 09/16/24 11:30 Vital Signs Temp 97.8 F 09/24/24 08:40 Pulse 107 H 09/24/24 08:40 Resp 18 09/23/24 21:37 BP 132/92 09/24/24 08:40 Pulse Ox 99 09/24/24 08:40 FiO2 Patient Condition at Discharge: Stable Plan - Discharge Summary Discharge Rx Participant: No New Discharge Prescriptions: New Ibuprofen [Motrin] 600 mg PO Q6HR PRN tab PRN Reason: Moderate Pain (Scale 4 To 6) Multivitamins, Thera [Multivitamin (formulary)] 1 each PO DAILY tab Naltrexone HCl [Revia] 50 mg PO DAILY 30 Days #30 tab Albuterol Inhaler [Ventolin Hfa Inhaler] 2 puff INHALATION RT-QID PRN each PRN Reason: Shortness Of Breath Or Wheezing DULoxetine HCL [Cymbalta] 60 mg PO DAILY 30 Days #30 cap traZODone HCL [Desyrel] 100 mg PO HS PRN 30 Days #30 tab PRN Reason: Insomnia Folic Acid 1 mg PO DAILY tab Nicotine 21Mg/24Hr Patch [Habitrol] 1 patch TRANSDERM DAILY 14 Days #14 patch [place] Carbonate 300 mg PO BID 30 Days #60 cap Nicotine Gum (Polacrilex) [Nicorette] 2 mg BUCCAL Q4HR PRN pieceofgum PRN Reason: Nicotine Cravings Thiamine [Vitamin B-1] 100 mg PO DAILY tab Discontinued Naproxen Sodium [Aleve] 660 mg PO BID PRN PRN Reason: Pain Or Fever > 100.5 Discharge Medication List Albuterol Inhaler [Ventolin Hfa Inhaler] 2 puff INHALATION RT-QID PRN each 09/24/24 [Rx] DULoxetine HCL [Cymbalta] 60 mg PO DAILY 30 Days #30 cap 09/24/24 [Rx] Folic Acid 1 mg PO DAILY tab 09/24/24 [Rx] Ibuprofen [Motrin] 600 mg PO Q6HR PRN tab 09/24/24 [Rx] [place] Carbonate 300 mg PO BID 30 Days #60 cap 09/24/24 [Rx] Multivitamins, Thera [Multivitamin (formulary)] 1 each PO DAILY tab 09/24/24 [Rx] Naltrexone HCl [Revia] 50 mg PO DAILY 30 Days #30 tab 09/24/24 [Rx] Nicotine 21Mg/24Hr Patch [Habitrol] 1 patch TRANSDERM DAILY 14 Days #14 patch 09/24/24 [Rx] Nicotine Gum (Polacrilex) [Nicorette] 2 mg BUCCAL Q4HR PRN pieceofgum 09/24/24 [Rx] Thiamine [Vitamin B-1] 100 mg PO DAILY tab 09/24/24 [Rx] traZODone HCL [Desyrel] 100 mg PO HS PRN 30 Days #30 tab 09/24/24 [Rx] Follow up Appointment(s)/Referral(s): Sanjeev Baird [Other] - 09/26/24 10:00 am (Pleae check email for access to website portal, complete paperwork 24 hours prior to appt or appt will be cancelled 08/27 @ 10:00 intake) [facility] [Other] - 1 Week Patient Instructions/Handouts: Depression (DC) Activity/Diet/Wound Care/Special Instructions: [facility] Discharge Info Avoid the use of street drugs and alcohol. Take all medications as prescribed. When you are in need of refills on your medications, please contact your outpatient medical provider and/or outpatient psychiatrist. Please go to your scheduled outpatient appointments for aftercare treatment. If symptoms return or become worse, call the crisis line at or and/or visit the nearest emergency room for assistance. National Suicide and Crisis Lifeline - call or text 160 Discharge/Stand Alone Forms: AA Meetings [place] Discharge Disposition: HOME SELF-CARE
== END 2024-09-24 12:25 | disposition home or self-care (01) | DRG 881 ==
LOC: EC 08:59 → 3MHU 16:20
PROVIDERS: ADMIT Psychiatry & Neurology Psychiatry; ATTEND Psychiatry & Neurology Psychiatry
PROC: HZ2ZZZZ Detoxification Services for Substance Abuse Treatment (ICD-10-PCS; principal; 2024-09-16)
PROC: 3E02340 Introduction of Influenza Vaccine into Muscle, Percutaneous Approach (ICD-10-PCS; 2024-09-16)
PROC: 3E0234Z Introduction of Serum, Toxoid and Vaccine into Muscle, Percutaneous Approach (ICD-10-PCS; 2024-09-16)
DX: F32.A Depression, unspecified (principal); F10.231 Alcohol dependence with withdrawal delirium; F12.10 Cannabis abuse, uncomplicated; J45.909 Unspecified asthma, uncomplicated; R45.851 Suicidal ideations; Z23 Encounter for immunization; F41.9 Anxiety disorder, unspecified; F17.290 Nicotine dependence, other tobacco product, uncomplicated; Z88.0 Allergy status to penicillin; Z71.51 Drug abuse counseling and surveillance of drug abuser; Z71.41 Alcohol abuse counseling and surveillance of alcoholic
CPT/HCPCS: 36415; 80053; 80061; 80076; 80306; 81003; 82075; 83036; 83690; 83735; 84443; 85025; 87636; 96361; 96374; 96375; 99285